=== PATIENT | female | born 1955 | race Caucasian/White ===

== ENCOUNTER → 2018-04-17 | Outpatient (CLI) | payer BC ==
[2018-04-17 12:17] LABS: ALT 43 U/L (9-52); AST 38 U/L (14-36)
== END | disposition home or self-care (01) ==
LOC: LABWHC1 11:40
PROVIDERS: ATTEND Physician Assistant
DX: B35.1 Tinea unguium (principal)
CPT/HCPCS: 36415; 84450; 84460

== ENCOUNTER → 2018-07-10 | Outpatient (CLI) | payer BC ==
[2018-07-10 19:44] LABS: Hemoglobin A1C 5.6 % (4.0-6.0)
== END | disposition home or self-care (01) ==
LOC: LABWHC1 08:30
PROVIDERS: ATTEND Internal Medicine
DX: R73.01 Impaired fasting glucose (principal)
CPT/HCPCS: 36415; 82947; 83036

== ENCOUNTER → 2022-09-12 | Outpatient (CLI) | payer BC ==
--- NOTE | 2022-09-12 17:08 | CT ---
EXAMINATION TYPE: CT soft tissue neck w con CT DLP: 340.5 mGycm, Automated exposure control for dose reduction was used. DATE OF EXAM: 09/12/2022 4:36 PM COMPARISON: None. CLINICAL INDICATION:Female, 67 years old with history of R22.1 LOCALIZED SWELLING, MASS AND LUMP, NEC K, Pt states she has been having right side neck/ear pain since May TECHNIQUE: Standard enhanced CT of the neck. Axial sections with coronal and sagittal reformats were obtained. Contrast used:100cc mL of Isovue 300 with IV Contrast, Oral contrast used: none. FINDINGS: Brain: Visualized portions are grossly unremarkable. Orbits: Unremarkable . Sinuses: Mucosal thickening of the right maxillary sinus. Spaces of the neck: No organizing fluid collection or mass. Musculoskeletal: No acute osseous pathology. Lymph nodes: Multiple nonenlarged lymph nodes are seen along both anterior chains of the neck. Vascular structures: Visualized major arteries are patent without evidence of aneurysm. Thoracic Inlet/airway: Airway is patent. The lung apices are clear. Soft tissues/Thyroid: Thyroid and remainder of the soft tissues are unremarkable. Other: none. IMPRESSION 1. No definite evidence for abscess or significant abnormality. No evidence for metastatic abnormali ty to correlate with patient's pain. 2. Paranasal sinus disease with mucous retention cyst within the right maxillary sinus.
== END | disposition home or self-care (01) ==
LOC: RADCTMAIN 15:06
PROVIDERS: ATTEND Otolaryngology
DX: H70.90 Unspecified mastoiditis, unspecified ear (principal); R22.1 Localized swelling, mass and lump, neck
CPT/HCPCS: 82565; 84520; 70491; 36415; Q9967